=== PATIENT | male | born 1990 | race Caucasian/White ===

== ENCOUNTER 2018-08-25 17:53 | Emergency (ER) | payer OTHER ==
[~2018-08-25] VITALS: Ht 185.4 cm; Wt 95.2 kg
== END 2018-08-25 19:47 | disposition home or self-care (01) ==
LOC: ER 17:53
DX: H10.11 Acute atopic conjunctivitis, right eye (principal); M67.40 Ganglion, unspecified site
CPT/HCPCS: 99283